=== PATIENT | male | born 1970 | race African-American/Black ===

== ENCOUNTER 2018-02-18 06:14 | Inpatient (IN) ==
[2018-02-18] MEDS ORDERED: Morphine Inj 4 MG/ML Vial IV.PUSH ONE (06:41)
[2018-02-18 06:51] LABS: Baso # (Auto) 0.1 th/mm3 (0.0-0.2); Baso % (Auto) 1.1 % (0.0-2.0); Eos # (Auto) 0.2 th/mm3 (0.0-0.4); Eos % (Auto) 2.5 % (0.0-4.0); Hematocrit 46.8 % (39.0-51.0); Hemoglobin 15.6 gm/dL (13.0-17.0); Lymph # (Auto) 2.7 th/mm3 (1.0-4.8); Lymph % (Auto) 30.2 % (9.0-44.0); Mean Corpuscular HGB Conc 33.3 % (32.0-36.0); Mean Corpuscular Hemoglobin 29.3 pg (27.0-34.0); Mean Platelet Volume 8.3 fL (7.0-11.0); Mono # (Auto) 0.7 th/mm3 (0.0-0.9); Neut # (Auto) 5.2 th/mm3 (1.8-7.7); Neut % (Auto) 58.2 % (16.0-70.0); Platelet Count 366 th/mm3 (150-450); Red Blood Count 5.31 mil/mm3 (4.50-5.90); Red Cell Distribution Width 15.4 % (11.6-17.2)
[2018-02-18] MEDS ORDERED: Metoprolol Inj 5 MG/5 ML Vial IV.PUSH PRN (06:51)
--- NOTE | 2018-02-18 06:51 | ED ---
HPI General Chief complaint: Nausea/Vomiting/Diarrhea Stated complaint: Abd pain Time Seen by Provider: 02/18/18 06:29 Source: patient Mode of arrival: ambulatory Limitations: no limitations History of Present Illness MD complaint: nausea and vomiting Onset (ago): hour(s) (2) Location of pain: other (No pain) Severity: severe (Numerous episodes of emesis) Context: other (No known causative factor) Associated symptoms: other (Diaphoresis) Related Data Home Medications Medication Instructions Recorded Confirmed lisinopril 40 mg PO DAILY 02/18/18 02/18/18 Allergies Allergy/AdvReac Type Severity Reaction Status Date / Time No Known Allergies Allergy Verified 02/18/18 06:17 Review of Systems Except as stated in HPI: all other systems reviewed are negative [facility] Medical History Medical History HTN (hypertension) (Acute) Peptic ulcer disease (Acute) Polysubstance abuse (Acute) Surgical History Surgical History History of colonoscopy (Acute) Family History Family History Other Family history of diabetes mellitus Family history of hypertension Social History Social History Substance History: No History of Abuse Second Hand Smoke Exposure: No Smoking Status: Current some day smoker Tobacco Type: Cigarettes How Often Do You Have a Drink Containing Alcohol: Monthly or less Recent Travel in [facility] within the Last 8 Weeks: No Recent Out of Country Travel within the Last 8 Weeks: No Immunization History Tetanus Immunization: >5 Years Hx Influenza Vaccine This Season: No Exam Const General: cooperative and acute distress Orientation: alert, awake and oriented x3 Other: The patient is pacing about the room. He looks very uncomfortable. Profound diaphoresis. HENMT Head: normocephalic and atraumatic Eyes General: appearance normal, both eyes and all related structures Pupils: PERRL Neck Neck: full ROM and supple Chest Chest: normal inspection of the chest Resp Effort & Inspection: normal respiratory effort and able to speak in complete sentences Cardio Rate: regular rate Rhythm: regular rhythm GI Inspection: normal to inspection Other: Unable to formally assess his abdomen at this time as he is pacing about the room. Back/Spine/Pelvis Cervical Spine: cervical ROM normal Thoracic/Lumbar Spine: thoraco-lumbar ROM normal Neuro General: alert, awake, oriented x3, moves all extremities and CN's II-XI intact bilaterally Extrem General: normal to inspection and full ROM Psych Appearance: grossly normal Mental Status: mental status grossly normal Speech and Movement: speech and movement normal Mood: congruent mood Attitude: cooperative Thought Process: normal Thought Content: normal Judgment: judgment good Course Reevaluation(s) Reevaluation #1: EKG obtained on 7:42 AM on February 18 revealed sinus bradycardia with a left axis deviation normal IN interval and QTc. Inverted T waves on the V4 through V6. Inverted T waves on the inferior leads. No ST elevations. Time: 07:59 Reevaluation #2: Patient eloped Time: 12:16 Initial Documented Vital Signs Temperature 99.4 F 02/18/18 06:17 Pulse Rate 57 L 02/18/18 06:17 Respiratory Rate 24 02/18/18 06:17 Blood Pressure 222/105 H 02/18/18 06:17 Pulse Oximetry 99 02/18/18 06:17 Last Documented Vital Signs Temperature 99.4 F 02/18/18 06:17 Pulse Rate 50 L 02/18/18 10:00 Respiratory Rate 14 02/18/18 07:24 Blood Pressure 149/99 H 02/18/18 10:00 Pulse Oximetry 99 02/18/18 07:24 Sign Out Sign Out Data: Patient Sign Out occurred on 02/18/18 at 07:54. Patient's care was discussed, and care was transferred from Rianna Henderson to Bryce Fajardo DO. Sign Out Comment: Patient is being signed out at 7 AM pending cardiac evaluation and response to treatment. Last updated by Rianna Henderson at 02/18/18 06:56 Post-Handoff Eval: Patient was signed out to me by the evening physician. He appears to be in distress diaphoretic with nausea and vomiting. We will repeat the EKG that did not reveal any ST elevation NH however she does have more high for acute T-wave inversions on the lateral precordial leads. Presentation was discussed with Dr. Paez interventional cardiology who agrees on having the patient n.p.o. and taken electively to cardiac cath later on today. Initial troponin has been negative. Patient is alert and oriented. Medical Decision Making MDM Narrative Medical decision making narrative: Patient presents with the acute onset of nausea and vomiting. He is also markedly diaphoretic. He has a history of hypertension and is markedly hypertensive this morning. Cardiac evaluation is in process. He is being treated medically with ODT Zofran , IV morphine, IV Lopressor and Nitropaste. Repeat EKG not suggestive of acute ischemia. Troponin initially within normal limits. Patient was placed on nitro drip. Differential Diagnosis Differential Diagnosis: Differential diagnosis includes but is not limited to viral gastritis, food poisoning, pancreatitis, pneumonia, hepatitis, acute coronary syndrome Medical Records Medical records reviewed: Yes I reviewed the patient's medical records. This patient has been admitted before because of hypertensive urgency. Lab Data Lab results reviewed: Yes I reviewed the patient's lab results. Result diagrams: 02/18/18 06:35 02/18/18 06:35 Lab Results 02/18/18 02/18/18 Range/Units 06:35 06:35 WBC 9.0 (4.0-11.0) th/mm3 RBC 5.31 (4.50-5.90) mil/mm3 Hgb 15.6 (13.0-17.0) gm/dL Hct 46.8 (39.0-51.0) % MCV 88.0 (80.0-100.0) fL MCH 29.3 (27.0-34.0) pg MCHC 33.3 (32.0-36.0) % RDW 15.4 (11.6-17.2) % Plt Count 366 (150-450) th/mm3 MPV 8.3 (7.0-11.0) fL Neut % (Auto) 58.2 (16.0-70.0) % Lymph % (Auto) 30.2 (9.0-44.0) % Brooks % (Auto) 8.0 (0.0-8.0) % Eos % (Auto) 2.5 (0.0-4.0) % Baso % (Auto) 1.1 (0.0-2.0) % Neut # (Auto) 5.2 (1.8-7.7) th/mm3 Lymph # (Auto) 2.7 (1.0-4.8) th/mm3 Brooks # (Auto) 0.7 (0.0-0.9) th/mm3 Eos # (Auto) 0.2 (0.0-0.4) th/mm3 Baso # (Auto) 0.1 (0.0-0.2) th/mm3 WBC Differential . Differential Comment Auto diff final Sodium 142 (136-145) meq/L Potassium 4.6 (3.5-5.1) meq/L Chloride 109 H (98-107) meq/L Carbon Dioxide 26.2 (21.0-32.0) meq/L Anion Gap 7 (5-15) meq/L BUN 17 (7-18) mg/dL Creatinine 1.32 H (0.60-1.30) mg/dL Estimated GFR 70 L (>89) mL/min Random Glucose 97 (74-106) mg/dL Calcium 9.2 (8.5-10.1) mg/dL Total Bilirubin 0.4 (0.2-1.0) mg/dL AST 31 (15-37) U/L ALT 30 (12-78) U/L Alkaline Phosphatase 54 (45-117) U/L Troponin I Less than 0.02 L (0.02-0.05) ng/mL Total Protein 8.5 H (6.4-8.2) g/dL Albumin 4.3 (3.4-5.0) g/dL Imaging Data Attestation: I personally reviewed and interpreted this imaging study as follows : My impression: clear lungs Radiologist's impression: Chest X-Ray 02/18/18 06:33 CONCLUSION: Stable examination. No acute pulmonary findings. ECG Data EKG Prior to Arrival: No Attestation: I personally reviewed and interpreted this ECG as follows: (Normal sinus rhythm with a ventricular rate of 54. He has LVH. He has some ST depression and T-wave inversion in the inferior leads as well as an V4 through V6. He also has some mild ST segment elevation in V1 and V2) Prior ECG tracings: not available for review
--- NOTE | 2018-02-18 07:08 | XR ---
EXAM DATE: 02/18/2018 7:02 AM EDT AGE/SEX: 47 years / Male INDICATIONS: . Chest discomfort, abdominal pain, vomiting for 24 hours CLINICAL DATA: This is the patient's initial encounter. Patient reports that signs and symptoms have been present for 1 day and indicates a pain score of 0/10. MEDICAL/SURGICAL HISTORY: None. None. COMPARISON: [facility] [place], 12/14/2010. . FINDINGS: A single AP view of the chest demonstrates the lungs to be symmetrically aerated without evidence of mass, infiltrate, or effusion. The cardiomediastinal contours are unremarkable. Stable mild leftward curvature of the thoracic spine. CONCLUSION: Stable examination. No acute pulmonary findings. Electronically signed by: Elle Arriaga MD 02/18/2018 7:07 AM EDT
[2018-02-18 07:19] LABS: Alkaline Phosphatase 54 U/L (45-117); Total Protein 8.5 g/dL (6.4-8.2)
[2018-02-18 07:31] LABS: Alanine Aminotransferase 30 U/L (12-78); Albumin 4.3 g/dL (3.4-5.0); Anion Gap 7 meq/L (5-15); Blood Urea Nitrogen 17 mg/dL (7-18); Calcium 9.2 mg/dL (8.5-10.1); Carbon Dioxide 26.2 meq/L (21.0-32.0); Chloride 109 meq/L (98-107); Glomerular Filtration Rate 70 mL/min (>89); Glucose,Random 97 mg/dL (74-106); Sodium 142 meq/L (136-145)
[2018-02-18 07:35] LABS: Aspartate Aminotransferase 31 U/L (15-37); Potassium 4.6 meq/L (3.5-5.1)
[2018-02-18] MEDS ORDERED: Nitroglycerin Drip Premix 50 MG/250 ML BOTTLE IV.CONT PRN (08:02)
[2018-02-18] MEDS ORDERED: Metoclopramide Inj 10 MG in Sodium Chlor 0.9% Inj 50 ML IV.SIG ONE (08:06)
[2018-02-18] MEDS ORDERED: Bisacodyl 10 MG Supp RECTAL PRN (09:27)
[2018-02-18] MEDS ORDERED: Acetaminophen 325 MG Tablet PO PRN (09:27)
[2018-02-18] MEDS ORDERED: Morphine Inj 4 MG/ML Vial IV.PUSH PRN (09:27)
[2018-02-18] MEDS ORDERED: Promethazine 25 MG Supp RECTAL PRN (09:49)
[2018-02-18] MEDS ORDERED: Heparin - SQ 10,000 UNITS/ML Vial SQ SCH (10:00)
[2018-02-18] MEDS ORDERED: Sod Chloride 0.9% Inj 1,000 ML IV.CONT SCH (10:00)
[2018-02-18] MEDS ORDERED: Dextrose 50% in Water 50 ML Vial IV.PUSH PRN (10:01)
--- NOTE | 2018-02-18 10:01 | P.HPCC ---
History of Present Illness Service: Critical care medicine Primary Care Physician: No Primary Care Physician Chief Complaint: Nausea and vomiting History of Present Illness: This is a 47-year-old AA male. Date of admission 02/18/2018. Past medical history includes hypertension which he states he is noncompliant with his lisinopril. He also has history of peptic ulcer disease and PSA. Prior history of tobaccoism which he states he is currently quit. Occasional alcohol use. Denies current cocaine or THC use. Patient presents to [facility] with a chief complaint of bad gastroesophageal reflux disease/heartburn. Upon arrival, patient was noted to have an elevated blood pressure was systolic in the 220s. He was initially given 5 mg IV metoprolol tartrate his heart rate is currently 55. EKG revealed ST changes in the anterior/lateral leads physically ST depression in leads II, III, aVF and V5 and 6.. He has heartburn/ chest pain is not reproducible to palpation. He was started on a nitroglycerin drip systolic blood pressures currently 160. Currently complaining of headache only and requesting water. Cardiology/Dr. Zimmer was notified. Plans for heart catheterization today. I will give 324 mg aspirin p.o. 1 now. Lipid panel and A1c will be checked. Inpatient Certification: I certify that the inpatient services were ordered in accordance with Medicare regulations governing the order. This includes certification that hospital inpatient services are reasonable and necessary and in the case of services not specified as inpatient-only under 42 CFR 419.22(n), that they are appropriately provided as inpatient services in accordance to with the 2-midnight benchmark under 43 CFR 412.3(e) Estimated Total Length of Stay (Days): 3 Plans for Post Hospital Care: Not yet determined Review of Systems Constitutional: Denies anorexia, Denies body ache(s), Denies weakness, Denies weight gain, Denies weight loss Eyes: Denies blurry vision Ears, Nose, Mouth, and Throat: Denies abnormal hearing, Denies dizziness Cardiovascular: Denies chest pain, Denies generalized swelling, Denies shortness of breath with activity, Denies shortness of breath when lying down, Denies shortness of breath causing sudden awakening Respiratory: Denies chest congestion, Denies pain on inspiration, Denies shortness of breath Gastrointestinal: Reports abdominal pain, Reports belching, Reports nausea, Denies change in bowel habits, Denies coffee ground vomit, Denies vomiting Genitourinary: Reports decreased urination, Reports scrotal swelling Musculoskeletal: Denies back pain, Denies muscle weakness, Denies stiffness Skin/Breast: Denies acne, Denies dry skin Neurologic: Reports headache(s), Denies frequent falls, Denies localized weakness, Denies tingling/numbness/burning sensations Psychiatric: Reports anxiety, Reports irritability, Denies memory loss Endocrine: Reports increased thirst, Denies flushing Hematologic/Lymphatic: Denies easy bleeding Allergic/Immunologic: Reports GI upset with certain foods, Denies hives PMFSH - History History Provided By: Patient - Medical History Medical History: Medical History (Last Updated 02/18/18 @ 09:47 by Ruiz Patel MD) HTN (hypertension) Peptic ulcer disease Polysubstance abuse - Surgical History Surgical History: Surgical History (Last Updated 02/18/18 @ 09:48 by Ruiz Patel MD) History of colonoscopy - Family History Family History: Family History (Last Updated 02/18/18 @ 09:48 by Ruiz Patel MD) Other Family history of diabetes mellitus Family history of hypertension - Tobacco History Second Hand Smoke Exposure: No Tobacco Use In Past 30 Days: Yes Smoking Status: Current some day smoker Tobacco Type: Cigarettes - Alcohol History How Often Do You Have a Drink Containing Alcohol: Monthly or less - Substance Use History Substance History: No History of Abuse - Travel History Recent Travel in the [place] Within the Last 8 Weeks: No Recent Travel Out of the Country Within the Last 8 Weeks: No - Immunization History Tetanus Immunization: >5 Years Hx Influenza Vaccine This Season: No Medications and Allergies Active Medications: Active Medications Acetaminophen (Tylenol) 650 mg PO Q6H PRN PRN Reason: PAIN 1-10 AND/OR FEVER >101F Al Hydroxide/Mg Hydroxide (Milk Of Magnreji Liq) 30 ml PO Q12H PRN PRN Reason: Mild Constipation Albuterol (Albuterol Neb (Prn)) 2.5 mg NEB Q2HR NEB PRN PRN Reason: SHORTNESS OF BREATH/WHEEZING Albuterol (Duoneb Neb (Shirley)) 1 ampul NEB Q4HR NEB SHIRLEY Aspirin (Aspirin Chew) 324 mg PO ONCE ONE Stop: 02/18/18 09:33 Aspirin (Ecotrin) 162 mg PO DAILY SHIRLEY Bisacodyl (Dulcolax Supp) 10 mg RECTAL DAILY PRN PRN Reason: SEVERE CONSITIPATION Chlorhexidine Gluconate (Chlorhexidine 2% Cloth) 3 pack TOPICAL DAILY@0400 SHIRLEY Stop: 02/24/18 03:59 Chlorhexidine Gluconate (Chlorhexidine 2% Cloth) 3 pack TOPICAL DAILY@0400 PRN PRN Reason: Extra cloth needed Stop: 02/24/18 03:59 Enalaprilat (Vasotec Inj) 2.5 mg IV.PUSH Q6H PRN PRN Reason: SBP>160, DBP>90 Heparin Sodium (Porcine) (Heparin Inj) 5,000 units SQ Q8H [facility] Nitroglycerin/Dextrose (Nitroglycerin Drip Premix) 50 mg in 250 mls @ 0 mls/hr IV.CONT TITRATE PRN; Protocol PRN Reason: Per Protocol Last Titration: 02/18/18 09:12 Dose: 30 mcg/min, 9 mls/hr Sodium Chloride (Ns Inj) 1,000 mls @ 84 mls/hr IV.CONT .[id number] [facility] Lactulose (Lactulose Liq) 30 ml PO DAILY PRN PRN Reason: SEVERE CONSITIPATION Metoprolol Tartrate (Lopressor Inj) 5 mg IV.PUSH Q5M PRN PRN Reason: BLOOD PRESSURE MANAGEMENT Morphine Sulfate (Morphine Inj) 2 mg IV.PUSH Q2H PRN PRN Reason: BREAKTHROUGH PAIN Non-Formulary Medication (Lisinopril [Lisinopril]) 40 mg PO DAILY [facility] Ondansetron HCl (Zofran Inj) 4 mg IV.PUSH Q6H PRN PRN Reason: NAUSEA OR VOMITING Pantoprazole Sodium (Protonix) 40 mg PO DAILY [facility] Senna/Docusate Sodium (Anh-Colace) 1 tab PO BID [facility] Sennosides (Senokot) 17.2 mg PO Q12H PRN PRN Reason: Moderate Constipation Sodium Chloride (Ns Flush) 2 ml IV.FLUSH PRN PRN PRN Reason: FLUSH AFTER USING IV ACCESS Sodium Chloride (Ns Flush) 2 ml IV.FLUSH BID [facility] Sodium Chloride (Ns Flush) 2 ml IV.FLUSH UNSCH PRN PRN Reason: FLUSH AFTER USING IV ACCESS Allergies Allergy/AdvReac Type Severity Reaction Status Date / Time No Known Allergies Allergy Verified 02/18/18 06:17 Home Medications Medication Instructions Recorded Confirmed Type lisinopril 40 mg PO DAILY 02/18/18 02/18/18 History Results - Labs CBC & Chem 7: 02/18/18 06:35 02/18/18 06:35 Labs: Short CBC 02/18/18 Range/Units 06:35 WBC 9.0 (4.0-11.0) th/mm3 Hgb 15.6 (13.0-17.0) gm/dL Hct 46.8 (39.0-51.0) % Plt Count 366 (150-450) th/mm3 BMP 02/18/18 06:35 Sodium 142 Potassium 4.6 Chloride 109 H Carbon Dioxide 26.2 BUN 17 Creatinine 1.32 H Calcium 9.2 Cardiac Enzymes 02/18/18 Range/Units 06:35 Troponin I Less than 0.02 L (0.02-0.05) ng/mL Liver Function 02/18/18 Range/Units 06:35 Total Bilirubin 0.4 (0.2-1.0) mg/dL AST 31 (15-37) U/L ALT 30 (12-78) U/L Alkaline Phosphatase 54 (45-117) U/L Albumin 4.3 (3.4-5.0) g/dL - Imaging Impressions Chest X-Ray 02/18/18 06:33 CONCLUSION: Stable examination. No acute pulmonary findings. Exam Vital signs: Vital Signs 02/18/18 06:17 02/18/18 06:21 02/18/18 06:43 Temperature 99.4 F Pulse Rate 57 L 63 Respiratory Rate 24 20 Blood Pressure 222/105 H 236/129 H Pulse Oximetry 99 100 98 02/18/18 07:24 Temperature Pulse Rate 52 L Respiratory Rate 14 Blood Pressure 213/121 H Pulse Oximetry 99 Intake & Output 02/17/18 02/18/18 02/18/18 18:59 06:59 18:59 Weight 82.1 kg Narrative: GENERAL: 47 yo AA male currently resting in bed in no acute distress requesting water SKIN: Warm and dry. HEAD: Atraumatic. Normocephalic. EYES: Pupils equal and round. No scleral icterus. No injection or drainage. ENT: No nasal bleeding or discharge. Mucous membranes pink and moist. NECK: Trachea midline. No JVD. CARDIOVASCULAR: Bradycardic, RRR. S1, S3 no S4 without murmur. RESPIRATORY: No accessory muscle use. Clear to auscultation. Breath sounds equal bilaterally. GASTROINTESTINAL: Abdomen soft, non-tender, nondistended. Hypoactive bowel sounds appreciated. MUSCULOSKELETAL: Extremities without edema. No obvious deformities. NEUROLOGICAL: Awake and alert. No obvious cranial nerve deficits. Motor grossly within normal limits. Five out of 5 muscle strength in the arms and legs. Normal speech. PSYCHIATRIC: Appropriate mood and affect; insight and judgment normal. Septic Shock Reassessment Septic shock perfusion: reassessment completed Caprini VTE Risk Assessment Caprini VTE Risk Assessment: No/Low Risk (score <= 1) Caprini Risk Assessment Model: Point Value = 1 Point Value = 2 Point Value = 3 Point Value = 5 Age 41-60 Minor surgery BMI > 25 kg/m2 Swollen legs Varicose veins or History of unexplained or recurrent spontaneous Oral contraceptives or hormone replacement Sepsis (< 1 month) Serious lung disease, including pneumonia (< 1 month) Abnormal pulmonary function Acute myocardial infarction Congestive heart failure (< 1 month) History of inflammatory bowel disease Medical patient at bed rest Age 61-74 Arthroscopic surgery Major open surgery (> 45 min) Laparoscopic surgery (> 45 min) Malignancy Confined to bed (> 72 hours) Immobilizing plaster cast Central venous access Age >= 75 History of VTE Family history of VTE Factor V Leiden Prothrombin [id number] Lupus anticoagulant Anticardiolipin antibodies Elevated serum homocysteine Heparin-induced thrombocytopenia Other congenital or acquired thrombophilia Stroke (< 1 month) Elective arthroplasty Hip, pelvis, or leg fracture Acute spinal cord injury (< 1 month) Prophylaxis Regimen: Total Risk Factor Score Risk Level Prophylaxis Regimen 0-1 Low Early ambulation 2 Moderate Order ONE of the following: *Sequential Compression Device (SCD) *Heparin 5000 units SQ BID 3-4 Higher Order ONE of the following medications: *Heparin 5000 units SQ TID *Enoxaparin/Lovenox 40 mg SQ daily (WT < 150 kg, CrCl > 30 mL/min) *Enoxaparin/Lovenox 30 mg SQ daily (WT < 150 kg, CrCl > 10-29 mL/min) *Enoxaparin/Lovenox 30 mg SQ BID (WT < 150 kg, CrCl > 30 mL/min) AND/OR *Sequential Compression Device (SCD) 5 or more Highest Order ONE of the following medications: *Heparin 5000 units SQ TID (Preferred with Epidurals) *Enoxaparin/Lovenox 40 mg SQ daily (WT < 150 kg, CrCl > 30 mL/min) *Enoxaparin/Lovenox 30 mg SQ daily (WT < 150 kg, CrCl > 10-29 mL/min) *Enoxaparin/Lovenox 30 mg SQ BID (WT < 150 kg, CrCl > 30 mL/min) AND *Sequential Compression Device (SCD) Assessment and Plan - Assessment and Plan Plan: Neuro/Psych: History of polysubstance abuse including cocaine and THC Acetaminophen 650 mg p.o. every 6 hours as needed fever/pain 1 through 10 Morphine sulfate 2 mg IV every 2 hours as needed breakthrough pain UDS pending. Acetaminophen, salicylates and EtOH pending CV: Hypertensive emergency Abnormal EKG -ST depression lateral leads Initial troponin 0 0.02. Cycle every 6 hours 2 Aspirin 324 mg p.o. 1 now. No beta-cornelia secondary bradycardia. Restart lisinopril 40 mg daily. Lipid panel ordered. Currently nitroglycerin drip to maintain systolic blood pressure less than [address] Zimmer. Plan for heart catheterization today Resp: History of tobaccoism 20 pack years Nasal cannula to maintain saturations greater than equal to 92% Incentive spirometry while awake Chest x-ray on admission revealed no acute cardiopulmonary findings Patient states he is stop smoking tobacco within the past 6 month GI: History of peptic ulcer disease *Pantoprazole 40 mg p.o. daily N.p.o. except for medications Docusate sodium/senna 1 tablet twice daily for bowel regimen : No indication for Stanton catheter Endo: Check hemoglobin A1c Sliding scale insulin with Accu-Cheks to maintain euglycemia every 6 hours Renal: Currently on normal saline at 84 cc an hour Creatinine currently within normal limits Monitor urine output Accurate I's and O's Heme: CBC within normal limits. Coags ordered ID: Monitor for signs and symptomatology infection MSK: PT evaluate and treat FEN: Replace electrolytes as clinically indicated per ICU electrolyte protocol Access -utilize peripheral IV. Central line if indicated Prophylaxis -GI -pantoprazole -DVT -SCD/heparin subcu Level 3 admission
[2018-02-18] MEDS ORDERED: Potassium Chloride 25 MEQ Effervescent Tablet PO PRN (10:02)
[2018-02-18] MEDS ORDERED: Potassium Phosphate 500 MG Soluble Tablet PO PRN ×2 (10:02)
[2018-02-18] MEDS ORDERED: Sodium Phosphate Inj 30 MMOL in Sodium Chlor 0.9% Inj 250 ML IV.SIG PRN (10:02)
[2018-02-18] MEDS ORDERED: Potassium Phosphate Inj 30 MMOL in Sodium Chlor 0.9% Inj 250 ML IV.SIG PRN (10:02)
[2018-02-18] MEDS ORDERED: Magnesium Oxide 400 MG Tablet PO PRN (10:02)
[2018-02-18] MEDS ORDERED: Potassium Chlor 20 mEq Premix 20 MEQ/100 ML PIGGYBACK IV.SIG PRN ×2 (10:02)
[2018-02-18] MEDS ORDERED: Potassium Chlor 40 mEq Premix 40 MEQ/100 ML PIGGYBACK IV.SIG PRN ×2 (10:02)
[2018-02-18] MEDS ORDERED: Magnesium Sulfate Inj 2 GM in Sodium Chlor 0.9% Inj 96 ML IV.SIG PRN (10:02)
[2018-02-18] MEDS ORDERED: Magnesium Sulfate Inj 4 GM in Sodium Chlor 0.9% Inj 92 ML IV.SIG PRN (10:02)
[2018-02-18] MEDS ORDERED: Insulin NovoLOG Aspart Correctional Sugar Inj SQ SCH (12:00)
--- NOTE | 2018-02-18 19:04 | ECG ---
Date Performed: 02/18/2018 Time Performed: 07:42:41 PTAGE: 47 years EKG: SINUS BRADYCARDIA MARKED LEFT AXIS DEVIATION LEFT VENTRICULAR HYPERTROPHY AND ST-T CHANGE A BNORMAL ECG PREVIOUS TRACING 02/18/18 @ 06.24 Since the previous tracing, no significant change noted DOCTOR: Davide Ordaz Interpretating Date/Time 02/18/2018 19:04:26
--- NOTE | 2018-02-18 19:04 | ECG ---
Date Performed: 02/18/2018 Time Performed: 06:24:11 PTAGE: 47 years EKG: SINUS BRADYCARDIA LEFT VENTRICULAR HYPERTROPHY AND ST-T CHANGE POSSIBLE SEPTAL MYOCARDIAL I NFARCTION ABNORMAL ECG PREVIOUS TRACING 02/28/15 @ 11.05.46 Since the previous tracing, no significant change noted DOCTOR: Davide Ordaz Interpretating Date/Time 02/18/2018 19:02:53
[2018-02-18] MEDS ORDERED: Senna/Docusate Sodium 8.6/50 MG Tablet PO SCH (21:00)
[2018-02-18 23:53] LABS: Magnesium 2.4 mg/dL (1.5-2.5)
[2018-02-18 23:54] LABS: Phosphorus 3.5 mg/dL (2.5-4.9)
[2018-02-19] MEDS ORDERED: Chlorhexidine Gluconate 2% 1 Pack (2 Cloths) TOPICAL SCH (04:00)
[2018-02-19] MEDS ORDERED: Chlorhexidine Gluconate 2% 1 Pack (2 Cloths) TOPICAL PRN (04:00)
[2018-02-19] MEDS ORDERED: Lisinopril 20 MG Tablet PO SCH (09:00)
== END 2018-02-18 12:12 | disposition left against medical advice (07) ==
LOC: NEPC 06:14 → NEDA 08:24
PROVIDERS: ADMIT Internal Medicine Critical Care Medicine; ATTEND Internal Medicine Critical Care Medicine